=== PATIENT | male | born 1990 | race Caucasian/White ===

== ENCOUNTER 2019-12-12 22:32 | Emergency (ER) | payer BC, SELFPAY ==
[2019-12-12 22:39] VITALS: BP 124/89; PULSE 72; RESP 15; TEMP 36.9; O2SAT 100
--- NOTE | 2019-12-12 23:09 | ED.LOWEXIN ---
HPI - Extremity Injury (Lower) General Chief Complaint: Extremity Injury, Lower Stated Complaint: R foot pain; injuried 2 wks ago Time Seen by Provider: 12/12/19 22:47 Source: RN notes reviewed History of Present Illness HPI Narrative: Patient presents emergency department from home for right foot pain. Patient states approximately 10 days ago he fell off a two-story building landing on his feet. He states he is initially seen and treated [facility] and transferred down to [facility] secondary to a calcaneus fracture he was placed in a splint at that time and was instructed secondary to swelling he would need to follow-up as an outpatient to be scheduled for surgery. Patient states that he had been on Percocets for pain control at home however those ran out approximately 4 days ago he states he went for his follow-up 2 days ago and was told secondary to insurance reasons he cannot follow-up with the surgeon and has no current follow-up he denies any new trauma or injury states he has been wearing the splint as instructed Related Data Allergies Allergy/AdvReac Type Severity Reaction Status Date / Time Penicillins Allergy Mild HIVES Verified 12/12/19 22:43 Review of Systems Review of Systems: Narrative: Gen.: Denies fevers or chills Musculoskeletal: See HPI Neuro: Denies numbness, tingling, weakness Skin: Denies rash Endo: Denies DM PMFSH Past Medical History Medical History (Updated 12/12/19 @ 23:39 by Ruifno Gonsalves DO) Right calcaneal fracture Social History Social History (Updated 12/12/19 @ 23:10 by Rufino Gonsalves DO) Smoking status: Never smoker Exam Narrative: Exam Narrative: APPEARANCE: No acute distress, nontoxic, resting in bed Eyes: EOMI HEENT: Normocephalic, atraumatic, RESPIRATORY: No respiratory distress MUSCULOSKELETAl: Right foot with splint intact, no tenderness of the right knee or hip dorsalis pedis pulse 2+ neurovascular intact NEURO: Awake and alert. Following commands, speech normal, no focal deficits SKIN:: Warm, dry. Normal Color no rash or lesions Course Course Emergency Course: Called and discussed with the [facility] transfer line they were able to access the patient's record states the patient is to follow-up with the [facility] orthopedic trauma clinic he is to call for an appointment on Sunday Discussed with patient results of workup and diagnosis. Discussed need for follow-up with primary care, proper use of medication, and reasons to return to the emergency department. Patient understands and agrees to current treatment plan Vital Signs Vital signs: Vital Signs Temperature 98.4 F 12/12/19 22:39 Pulse Rate 72 12/12/19 22:39 Respiratory Rate 15 12/12/19 22:39 Blood Pressure 124/89 12/12/19 22:39 Pulse Oximetry 100 12/12/19 22:39 Temperature 98.4 F 12/12/19 22:39 Pulse Rate 72 12/12/19 22:39 Respiratory Rate 15 12/12/19 22:39 Blood Pressure 124/89 12/12/19 22:39 Pulse Oximetry 100 12/12/19 22:39 Discharge Plan Discharge Clinical Impression: Right calcaneal fracture Patient Disposition: Home, Self-Care Condition: Stable Instructions: Antibiotic Form, Foot Fracture in Adults (ED) Additional Instructions: Return for increasing pain numbness or tingling in the extremities or any other symptoms of concern Called the [facility] orthopedic trauma clinic at [phone] on Sunday for follow-up in 3 to 4 days for further treatment and evaluation Prescriptions: New hydrocodone-acetaminophen 5-325 mg tablet 1 tablet PO Q4H PRN (Reason: pain) Qty: 10 RF: 0 ibuprofen [IBU] 600 mg tablet 600 mg PO Q6H PRN (Reason: pain) Qty: 20 RF: 0 Follow-up/Referrals: PHYSICIAN,SLD EDUCATIONAL AIDE [Primary Care Provider] - Time of Disposition: 23:40
[2019-12-12 23:52] VITALS: BP 122/78; PULSE 78; RESP 19; O2SAT 97
== END 2019-12-12 23:52 | disposition home or self-care (01) ==
PROVIDERS: Emergency Provider Emergency Medicine
DX: S92.001D Unspecified fracture of right calcaneus, subsequent encounter for fracture with routine healing (principal); W13.9XXD Fall from, out of or through building, not otherwise specified, subsequent encounter
CPT/HCPCS: 99283; A9270

== ENCOUNTER 2020-01-11 14:34 | Emergency (ER) | payer BC, SELFPAY ==
--- NOTE | ~2020-01-11 | XR_ITS ---
EXAMINATION: XR chest 1V portable INDICATION: Chest heaviness and shortness of breath TECHNIQUE: Portable AP chest at 1528 hours COMPARISON: None available FINDINGS: The lungs are free of acute opacities. There is no pleural effusion or pneumothorax. The ca rdiomediastinal silhouette is normal. The visualized bones and soft tissues are unremarkable. IMPRESSION: 1. No acute cardiopulmonary abnormality. Reviewed, dictated and finalized at location A.
[2020-01-11 14:53] VITALS: BP 103/55; PULSE 90; RESP 19; TEMP 36.8; O2SAT 97
[2020-01-11 14:56] VITALS: PULSE 90
--- NOTE | 2020-01-11 14:57 | ECG_ITS ---
Measurements Intervals [place] Rate: 66 P: 57 CO: 120 QRS: 91 QRSD: 94 T: 63 QT: 370 QTc: 388 Interpretive Statements SINUS RHYTHM WITH MARKED SINUS ARRHYTHMIA RIGHT AXIS DEVIATION BORDERLINE ECG Electronically Signed On 01-12-2020 7:02:43 CDT by Julio Cesar Laws D.O.
[2020-01-11] MEDS: SODIUM CHLORIDE 0.9% IV 1,000 ML 999 ML IV CONT (15:06)
[2020-01-11 15:09] VITALS: O2SAT 99
[2020-01-11 15:21] LABS: Basophils Percent Auto 0.5 % (0.2-1.2); Eosinophils Absolute Auto 0.1 K/mm3 (0-0.3); Eosinophils Percent Auto 1.3 % (0-4.4); Hematocrit 46.8 % (42.0-52.0); Immature Granulocyte Absolute 0.04 K/mm3 (0.00-0.031); Immature Granulocyte Percent A 0.5 % (0-0.5); Lymphocytes Absolute Auto 1.63 K/mm3 (0.9-3.2); Lymphocytes Percent Auto 19.7 % (18.3-44.2); Mean Corpuscular HGB Conc 34.2 g/dl (32-36); Mean Corpuscular Hemoglobin 30.8 pg (26-34); Mean Platelet Volume 9.8 fl (7.4-10.4); Monocytes Absolute Auto 0.6 K/mm3 (0.1-0.6); Monocytes Percent Auto 6.8 % (2.6-8.5); Neutrophils Absolute Auto 5.9 K/mm3 (1.3-6.7); Neutrophils Percent Auto 71.2 % (45.5-73.1); Platelet Count Result 351 k/mm3 (150-375); Red Cell Distribution Width 11.7 % (11.5-14.5); White Blood Count 8.3 K/mm3 (4.5-10.0)
--- NOTE | 2020-01-11 15:26 | ED.GENADULT ---
HPI - General Adult General Chief complaint: Chest Pain <Jimi Toney PA-C - Last Filed: 01/11/20 16:55> Stated complaint: SOB <Jimi Toney PA-C - Last Filed: 01/11/20 16:55> Time Seen by Provider: 01/11/20 14:37 <Jimi Toney PA-C - Last Filed: 01/11/20 16:55> Source: patient <Jimi Toney PA-C - Last Filed: 01/11/20 16:55> Mode of arrival: ambulatory <Jimi Toney PA-C - Last Filed: 01/11/20 16:55> Limitations: no limitations <Jimi Toney PA-C - Last Filed: 01/11/20 16:55> History of Present Illness HPI narrative: Patient is a 29-year-old male who presents with anterior chest pain and heaviness noting that he gets these symptoms every day patient does also note history of IV drug abuse noting that he last used IV heroin on Sunday patient denies any URI symptoms or other complaints presents in no distress and has not taken anything for his symptoms <Jimi Toney PA-C - Last Filed: 01/11/20 16:55> Related Data Allergies/adverse reactions: Allergies Allergy/AdvReac Type Severity Reaction Status Date / Time Penicillins Allergy Mild HIVES Verified 12/12/19 22:43 <Jimi Toney PA-C - Last Filed: 01/11/20 16:55> Review of Systems Review of Systems: All systems reviewed & are unremarkable except as noted in HPI and below <Jimi Toney PA-C - Last Filed: 01/11/20 16:55> [facility] Past Medical History Medical History: Medical History Right calcaneal fracture <JUAN CARLOS Reyes Last Filed: 01/11/20 16:55> Social History Social History: Social History (Updated 01/11/20 @ 15:28 by Jimi Tnoey PA-C) Smoking status: Current every day smoker Alcohol intake: current Substance use: current Substance use type: opiates and IV drugs Living arrangements: with family <Jimi Toney PA-C - Last Filed: 01/11/20 16:55> Exam Narrative: Exam Narrative: GENERAL: Well-appearing, well-nourished, and in no acute distress. HEAD: Normocephalic, atraumatic. EYES: PERRLA and EOMI. ENT: Nares clear, no rhinorrhea or epistaxis. Mucous membranes moist. Oropharynx without tonsillar hypertrophy exudate or other lesions. NECK: Supple. No adenopathy or masses. CHEST: Clear to auscultation. No respiratory distress. No wheezes rales or rhonchi HEART: Regular rate and rhythm. No murmur heard. Normal peripheral pulses. ABDOMEN: Soft, nontender, nondistended EXTREMITIES: Normal range of motion. No edema. SKIN: Warm, dry, no rash. NEURO: No focal deficits. Alert and oriented x3. PSYCH: Normal mood and affect. <Jimi Toney PA-C - Last Filed: 01/11/20 16:55> Course Vital Signs Vital signs: Vital Signs Temperature 36.8 C 01/11/20 14:53 Pulse Rate 90 01/11/20 14:53 Respiratory Rate 19 01/11/20 14:53 Blood Pressure 103/55 L 01/11/20 14:53 Pulse Oximetry 97 01/11/20 14:53 Temperature 36.8 C 01/11/20 14:53 Pulse Rate 61 01/11/20 17:06 Respiratory Rate 18 01/11/20 17:06 Blood Pressure 110/70 01/11/20 17:06 Pulse Oximetry 98 01/11/20 17:06 <JUAN CARLOS Reyes Last Filed: 01/11/20 16:55> Vital Signs Temperature 36.8 C 01/11/20 14:53 Pulse Rate 90 01/11/20 14:53 Respiratory Rate 19 01/11/20 14:53 Blood Pressure 103/55 L 01/11/20 14:53 Pulse Oximetry 97 01/11/20 14:53 Temperature 36.8 C 01/11/20 14:53 Pulse Rate 61 01/11/20 17:06 Respiratory Rate 18 01/11/20 17:06 Blood Pressure 110/70 01/11/20 17:06 Pulse Oximetry 98 01/11/20 17:06 <Keyanna Timmons MD - Last Filed: 01/11/20 17:11> Medical Decision Making MDM Narrative Medical decision making narrative: Paitents EKGs and labs are without significant high risk changes. Cardiac risk factors were reviewed. Patient is felt likely to be low risk for ACS and reasonable for further risk stratification te
[2020-01-11 15:30] LABS: Prothrombin Time 12.6 Seconds (11.1-14.7)
[2020-01-11 15:31] LABS: Partial Thromboplastin Time 25.8 SECONDS (22.3-36.8)
[2020-01-11 15:33] LABS: D Dimer 0.29 ug/mL (<0.48)
[2020-01-11 15:47] LABS: Alanine Aminotransferase 82 U/L (4-50); Albumin Level 4.8 g/dL (3.5-5.1); Alkaline Phosphatase 106 U/L (38-126); Aspartate Amino Transferase 56 U/L (17-59); Bilirubin,Total 0.3 mg/dL (0.2-1.3); Blood Urea Nitrogen 7 mg/dL (9-20); Carbon Dioxide 27 mmol/L (22-30); Chloride 104 mmol/L (98-107); Estimated CRCL calculation 130 ml/min; Estimated Glomerular Filt Rate > 60; Glucose 58 mg/dL (75-110); Potassium 3.4 mmol/L (3.4-5.0); Sodium 138 mmol/L (137-145)
[2020-01-11 15:49] LABS: Troponin I < 0.012 ng/mL (0.000-0.034)
[2020-01-11] MEDS: DEXTROSE 50% 25 GM/50 ML SYRINGE IV PUSH (15:52)
[2020-01-11 15:54] LABS: Add Urine Microscopic? NO; Appearance Urine Clear (Clear); Bilirubin Urine Negative (Negative); Blood Urine Negative (Negative); Color Urine Straw (Yellow); Glucose Urine UA Negative (Negative); Ketones Urine Negative (Negative); Leukocyte Esterase Ur Negative LEU/UL (Negative); Nitrate Urine Negative (Negative); Protein Urine Negative (Negative); Urobilinogen Urine Negative mg/dL (<2.0)
[2020-01-11 15:59] LABS: Specific Grav Ur 1.004 (1.001-1.035)
[2020-01-11 16:08] LABS: Amphetamine Screen Urine Negative (Negative); Barbiturate Screen Urine Negative (Negative); Benzodiazepines Screen Urine Negative (Negative); Cannabinoid Screen Urine Positive (Negative); Cocaine Screen Urine Negative (Negative); Methadone Screen Urine Negative (Negative); Opiate Screen Urine Negative (Negative); Phencyclidine Screen Urine Negative (Negative)
[2020-01-11 16:37] LABS: Glucose Point of Care 97 (65-105)
[2020-01-11 17:06] VITALS: BP 110/70; PULSE 61; RESP 18; O2SAT 98
== END 2020-01-11 17:05 | disposition home or self-care (01) ==
PROVIDERS: Emergency Medicine Emergency Medical Services; Emergency Provider Emergency Medicine
DX: R07.9 Chest pain, unspecified (principal); F17.200 Nicotine dependence, unspecified, uncomplicated; R94.31 Abnormal electrocardiogram [ECG] [EKG]
CPT/HCPCS: 36415; 71045; 80053; 80307; 81003; 82948; 84484; 85025; 85380; 85610; 85730; 93005; 96361; 96374; 96375; 99284; J0131; J7030